=== PATIENT | male | born 1965 | race Caucasian/White ===

== ENCOUNTER 2023-02-21 18:26 | Emergency (ER) | payer MEDICARE, SELFPAY ==
[2023-02-21 18:27] VITALS: BP 142/85; PULSE 84; RESP 18; TEMP 36.8; O2SAT 96; BMI 25.8
[2023-02-21 18:35] VITALS: O2SAT 96
--- NOTE | 2023-02-21 19:16 | W.ED.WOUNDLC ---
HPI - Wound/Laceration General: Chief Complaint: Wound/Laceration Stated Complaint: LEFT FOREARM LAC Time Seen by Provider: 02/21/23 18:29 Source: patient Mode of arrival: EMS Limitations: no limitations History of Present Illness: Patient presents to the emergency department today brought by EMS for evaluation treatment of concerns for injury to his left arm. Patient states he was using a power sprayer to clean out underneath his truck when the power sprayer kicked back and patient got hit in the left forearm with the water stream. Patient states he has a laceration to the left forearm and is afraid it hit the artery as it seemed to been bleeding quite a bit. Patient reports his last tetanus immunization is approximately 1 year ago as he stepped on a nail at that time. Review of Systems General: Reports: 10 or more systems reviewed and unremarkable except in HPI and below PFSH ED PFSH: Medical History H/O gastroesophageal reflux (GERD) H/O hyperlipidemia H/O: hypertension Type 2 diabetes mellitus Surgical History S/P tonsillectomy Family History Father Aneurysm Mother Lung disease Social History Smoking and tobacco status: never smoked Second hand smoke exposure: No Alcohol intake: former Year of sobriety/quit date alcohol: 2003 Former alcohol use details: vodka Desire information about alcohol rehabilitation?: No Substance/Drug Use: never Physical Exam Const: COMMON NORMALS: no acute distress, average body habitus and patient oriented x3 HENMT: COMMON NORMALS: normocephalic, atraumatic, hearing grossly normal bilaterally, Normal external nose present and moist oral mucous membranes HEAD & SCALP: normocephalic and atraumatic NOSE: Normal external nose present Eye: COMMON NORMALS: Equal, round and reactive pupils present, EOMs intact bilaterally and conjunctivae normal CONJUNCTIVA: Yes conjunctivae normal PUPIL: Yes Equal, round and reactive pupils present Neck/C-Spine: COMMON NORMALS: no JVD Lymph: LYMPHATIC: no lymphadenopathy noted Resp: COMMON NORMALS: normal respiratory effort, No retractions and No use of accessory muscles Cardio: COMMON NORMALS: no JVD, regular rate and regular rhythm RATE: regular rate RHYTHM: regular rhythm GI: COMMON NORMALS: Normal to inspection, nondistended, normoactive bowel sounds present : COMMON NORMALS: Yes no CVA tenderness BLADDER/KIDNEY EXAM: Yes no CVA tenderness Back/Pelvis: COMMON NORMALS: no CVA tenderness and thoraco-lumbar ROM normal Extremity: COMMON NORMALS: normal to inspection, full ROM and capillary refill normal Neuro: COMMON NORMALS: patient oriented x3 Psych: COMMON NORMALS: mental status grossly normal, Normal thought process present, cooperative, normal affect and activity/motor behavior normal THOUGHT PROCESS: Normal thought process present Skin: NARRATIVE SKIN EXAM: Patient has a relatively superficial laceration approximately 1.5 cm in length and wound edge separation approximately 0.5 cm. No active bleeding. Patient has an abrasion just medial to the laceration extending approximately 5 cm in total length but only approximately 0.5 cm wide. There is no bleeding from this abrasion. Procedures Laceration Laceration 1: Site: upper extremity (Anterior medial forearm) Side (If applicable): left Size (cm): 1.5 Description: linear Depth: simple, single layer Local Anesthetic: lidocaine 1% and with epi Amount of anesthesia used (mL): 3 Pre-repair: wound explored, irrigated extensively and deep structures intact Skin layer closed with: nylon Size (cm): 4-0 Number of sutures: 3 Technique: simple, interrupted Course Vital Signs: Vital signs: Vital Signs Temperature 98.2 F 02/21/23 18:27 Pulse Rate 84 02/21/23 18:27 Respiratory Rate 18 02/21/23 18:27 Blood Pressure 142/85 02/21/23 18:27 Pulse Oximetry 96 02/21/23 18:35 Oxygen Delivery Me thod Room Air 02/21/23 18:35 MDM - Wound/Laceration Medical Decision Making On examination, patient has a relatively superficial laceration which was easily repaired here in the emergency department with 3, 4-0 nylon sutures. Patient was given wound care instructions for daily cleaning and bandage changing. Patient is up-to-date on tetanus immunization per his report. Went over signs and symptoms of infection for which patient needs to be seen and reevaluated for a wound check. Patient verbalizes understanding and agreement to treatment plan. Differential Diagnosis Likely laceration and abrasion; Unlikely avulsion of skin No radiology studies performed this visit Discharge Plan Discharge Patient Disposition: Home Clinical Impression: Laceration of forearm, left Condition: Stable Prescriptions: No Action losartan 100 mg tablet 100 mg PO DAILY terazosin 10 mg capsule 10 mg PO DAILY simvastatin 20 mg tablet 20 mg PO DAILY omeprazole 40 mg capsule,delayed release(DR/EC) 40 mg PO DAILY polymyxin B sulf-trimethoprim 10,000 unit- 1 mg/mL drops 1 drp ophthalmic (eye) QID 7 Days Qty: 10 0RF Discharge Orders: Discharge ED (Routine); Ordered 02/21/23 Ordered By: Anyi Sommer Referrals: Mian Ruano MD [Primary Care Provider] - Discharge Diet: Usual diet Discharge Activity: Increase activity as tolerated Patient Instructions: Care For Your Stitches (ED), Wound Care (General) Activity Restrictions/Additional Instructions: Your wound was able to be cleaned here in the emergency department and repaired using 3, nonabsorbable sutures. The sutures need to be removed in 10 days. You can have these taken out at your primary care office, urgent care, or back here in the emergency department. Starting tomorrow morning, we recommend washing the wound twice a day with warm water and a mild soap. We also recommend keeping it covered to prevent it getting wet or soiled. If for any reason the bandaging does become wet or soiled we recommend you remove it, clean the wound, and replace with clean bandaging. Continue this process until sutures are removed. If for any reason the area becomes suddenly swollen, red, or drains of thick green and yellow material concerning for infection you should be seen and reevaluated for a wound check. Coding Level of Care Code ED Inside [employer]
[2023-02-21] MEDS: lidocaine-epi 1% 20 mL INJ 5 ML INJECTION (19:24)
[2023-02-21 19:30] VITALS: BP 142/85; PULSE 84; RESP 18; TEMP 36.8; O2SAT 96
== END 2023-02-21 19:31 | disposition home or self-care (01) ==
PROVIDERS: Emergency Provider Physician Assistant; PCP Internal Medicine
DX: S51.812A Laceration without foreign body of left forearm, initial encounter (principal); E78.5 Hyperlipidemia, unspecified; I10 Essential (primary) hypertension; E11.9 Type 2 diabetes mellitus without complications; W22.8XXA Striking against or struck by other objects, initial encounter
CPT/HCPCS: 12001; 99283